=== PATIENT | female | born 1955 | race Caucasian/White ===

== ENCOUNTER 2018-03-08 14:43 | Inpatient (IN) ==
--- NOTE | 2018-03-08 14:54 | DR.SOBA ---
HPI Time Seen Time Seen by Provider: 03/08/18 14:50 Primary Care Physician Primary Care Physician: NASREEN DICKERSON HPI Comment HPI Comment: GETTING WORSE. HERE VIA EMS. HISTORY COPD. HOMES DID NOT HELP. Complaints Chief Complaint Doctors Comments: INCREASING SOB TIMES SEVERAL HOURS. Chief Complaint:: PT. C/O EXACERABATION OF COPD AND SHORTNESS OF BREATH. SYMPTOMS WORSENED THIS MORNING. DENIES FEVER OR COUGH. Reviewed Nurses Notes Reviewed: Yes Source History Provided: Patient and EMS Mode of Arrival Mode of Arrival: EMS Timing Onset of Chief Complaint: 03/08/18 Duration Duration: Hours Context Onset:: At Rest PE Risk Factors:: None History of:: COPD Currently on:: Inhaled Bronchodilators Prehospital Care:: O2 and Inhaled B2 Modifying Factors Worsens:: Lying Flat Improves:: Sitting Up Associated Signs and Symptoms Associated Signs and Symptoms: Wheeze If Chest Pain Quality: Pleuritic (TIGHTNESS) If Cough Cough: None PMH PMH Past Medical History: Yes Past Medical History: COPD, Coronary Artery Disease, CVA and Hypertension Past Surgical History: Yes Surgical History: Ectopic Family History History of Family Medical Conditions: Yes Family Medical History: [place], Coronary Artery Disease and Hypertension Social History Does patient currently use any type of tobacco product: Yes Have you used tobacco products in the last 12 months: Yes Type of Tobacco Use: Cigarettes Does any household member use tobacco: Yes Alcohol Use: None Do you use any recreational Drugs:: No Lives With: Significant Other Lives Where: Home infectious screening In the last 2 months have you had wt loss of >10#?: NO Have you had fever, night sweats or hemotysis?: No Have you traveled outside the country in the last 6 months?: No Isolation: Standard ROS Review of Systems Constitutional: Weakness and Fatigue Eyes: No Symptoms Reported ENTM: No Symptoms Reported Respiratoy: Short of Breath and Wheezing Cardiovascular: Chest Pain Gastrointestinal/Abdominal: No Symptoms Reported Genitourinary: No Symptoms Reported Neurological: Weakness Musculoskeletal: No Symptoms Reported Integumentary: No Symptoms Reported Hematologic/Lymphatic: No Symptoms Reported Endocrine: No Symptoms Reported Psychiatric: No Symptoms Reported All Other Systems: Reviewed and Negative PE Vital Signs Vitals: Temperature 97.8 F Pulse Rate [Left Brachial] 108 Pulse Rate 111 Respiratory Rate 22 Blood Pressure [Left Arm] 106/65 Blood Pressure 141/85 O2 Sat by Pulse Oximetry 97 General Limitations: No Limitations General Appearance: Alert and In Distress Eyes Eye exam: Normal Appearance, PERRL and EOMI; negative Scleral Icterus and Conjunctival Injection ENT ENT Exam: Normal Exam, Normal Oropharynx, Normal External Ear Exam, Mucous Membranes Moist and TM's Normal Bilaterally Neck Neck Exam: Trachea Midline Chest Chest Inspection: Symmetric Chest Wall Rise Respiratory Respiratory Exam: Accessory Muscle Use and Respiratory Distress Respiratory Exam: Bilateral: Wheezing and Bilateral: Rhonchi, Upper: Wheezing and Lower: Wheezing and Lower: Rhonchi Cardiovascular Cardiovascular Exam: Regular Rate and Normal Rhythm Abdominal Exam Abdominal Exam: Normal Inspection, Normal Bowel Sounds and Soft; negative Tenderness Extremities Extremities Exam: Normal Inspection Back Back Exam: Normal Inspection Neurologic Neurological Exam: Alert Psychiatric Psychiatric Exam: Normal Affect and Normal Mood Skin Skin Exam: Intact MDM Differential Diagnosis Differential Diagnosis: Bronchitis, COPD, Respiratory Failure, Respiratory Insufficiency and URI COURSE Treatment Treatment: SEE ORDERS. Consultation Consultation Comments: PATIENT ADMITTED EO CORRINE CONNOLLY. Education/Counseling Education/Counseling: Patient Educated On: Diagnosis and Needs for Follow Up ROR Labs Reviewed Laboratory Results Reviewed?: Yes Result Diagrams: 03/11/18 04:09 03/11/18 04:09 Laboratory: 03/08/18 22:53 Urine,Catheterized Urine Culture - Final WBC 6.8 X10^3/uL (3.6-10.0) 03/11/18 04:09 RBC 4.22 X10^6/uL (3.5-5.4) 03/11/18 04:09 Hgb 10.4 g/dL (12.0-16.0) L 03/11/18 04:09 Hct 33.9 % (36.0-47.0) L 03/11/18 04:09 MCV 80.2 fL (80.0-100.0) 03/11/18 04:09 MCH 24.7 pg (27.0-34.0) L 03/11/18 04:09 MCHC 30.8 g/dL (33.0-35.0) L 03/11/18 04:09 RDW 16.8 % (11.6-16.5) H 03/11/18 04:09 Plt Count 315 X10^3/uL (150.0-450.0) 03/11/18 04:09 Plt Count Comment Adequate (ADEQUATE) 03/11/18 04:09 MPV 8.8 fL (7.4-11.0) 03/11/18 04:09 Neut % (Auto) 71.4 % (42.0-75.0) 03/11/18 04:09 Lymph % (Auto) 18.6 % (21.0-51.0) L 03/11/18 04:09 [place] % (Auto) 9.2 % (0.0-13.0) 03/11/18 04:09 Eos % (Auto) 0.1 % (0.9-2.9) L 03/11/18 04:09 Baso % (Auto) 0.7 % (0.2-1.0) 03/11/18 04:09 Neut # (Auto) 4.2 x10^3/uL (2.2-4.8) 03/11/18 04:09 Lymph # (Auto) 1.1 X10^3/uL (1.3-2.9) L 03/11/18 04:09 [place] # (Auto) 0.5 x10^3/uL (0.3-0.8) 03/11/18 04:09 Eos # (Auto) 0.0 x10^3/uL (0.0-0.2) 03/11/18 04:09 Baso # (Auto) 0.0 X10^3/uL (0.0-0.1) 03/11/18 04:09 Absolute Nucleated RBC 0.1 /100WBC 03/11/18 04:09 Total Counted 100 03/11/18 04:09 Neutrophils % (Manual) 72 % (39-76) 03/11/18 04:09 Band Neutrophils % 2 % (0-10) 03/10/18 04:07 Lymphocytes % (Manual) 21 % (13-43) 03/11/18 04:09 Monocytes % (Manual) 7 % (4-9) 03/11/18 04:09 Plt Morphology Comment Normal (NORMAL) 03/11/18 04:09 RBC Morphology Abnormal (NORMAL) A 03/11/18 04:09 Hypochromasia Slight A 03/11/18 04:09 Poikilocytosis Slight A 03/11/18 04:09 Anisocytosis Slight A 03/11/18 04:09 Target Cells Present 03/11/18 04:09 Stomatocytes Present 03/11/18 04:09 Sample Site Rbr 03/11/18 14:29 ABG pH 7.310 (7.35-7.45) L 03/11/18 14:29 ABG pCO2 89.0 mmHg (35.0-45.0) H* 03/11/18 14:29 ABG pO2 68.0 mmHg (80.0-100.0) L 03/11/18 14:29 ABG HCO3 44.8 mmol/L (22-26) H* 03/11/18 14:29 ABG O2 Saturation 91.0 % (90-100) 03/11/18 14:29 ABG Base Excess 14.6 mmol/L (-2.0-2.0) H 03/11/18 14:29 Seun Test N/a 03/11/18 14:29 A-a Gradient 49.0 mmHg 03/11/18 14:29 FiO2 32 03/11/18 14:29 Blood Gas Comments Pt irish well elj 03/11/18 14:29 Sodium 137 mmol/L (136-145) 03/11/18 04:09 Corrected Sodium 138 mmol/L (136-145) 03/11/18 04:09 Potassium 4.2 mmol/L (3.5-5.1) 03/11/18 04:09 Chloride 96 mmol/L (98-107) L 03/11/18 04:09 Carbon Dioxide 42.6 mmol/L (21-32) H* 03/11/18 04:09 BUN 15 mg/dL (7-18) 03/11/18 04:09 Creatinine 0.48 mg/dL (0.55-1.02) L 03/11/18 04:09 Est GFR (MDRD) Af Amer > 60 (>60) 03/11/18 04:09 Est GFR (MDRD) Non-Af > 60 (>60) 03/11/18 04:09 Glucose 124 mg/dL (65-99) H 03/11/18 04:09 Calcium 7.9 mg/dL (8.5-10.1) L 03/11/18 04:09 Corrected Calcium 8.7 mg/dL (8.5-10.1) 03/11/18 04:09 Magnesium 2.0 mg/dL (1.7-2.9) 03/09/18 04:00 Total Bilirubin 0.10 mg/dL (0.2-1.0) L 03/11/18 04:09 AST 14 Units/L (15-37) L 03/11/18 04:09 ALT 20 Units/L (12-78) 03/11/18 04:09 Alkaline Phosphatase 109 Units/L (46-116) 03/11/18 04:09 Creatine Kinase 59 Units/L (26-192) 03/09/18 04:00 CK-MB (CK-2) 2.6 ng/mL (0-4.0) 03/09/18 04:00 CK/CKMB % Calc 4.4 % (<4) 03/09/18 04:00 Troponin I < 0.02 ng/mL (0-1.5) 03/09/18 04:00 Total Protein 6.2 g/dL (6.4-8.2) L 03/11/18 04:09 Albumin 3.0 g/dL (3.4-5.0) L 03/11/18 04:09 Globulin 3.2 g/dL (2.5-4.5) 03/11/18 04:09 Albumin/Globulin Ratio 0.9 Ratio (1.1-2.1) L 03/11/18 04:09 Triglycerides 32 mg/dL (0-150) 03/09/18 04:00 Cholesterol 161 mg/dL (0-200) 03/09/18 04:00 LDL Cholesterol, Calc 84 mg/dL (0-100) 03/09/18 04:00 HDL Cholesterol 71 mg/dL (40-60) H 03/09/18 04:00 Cholesterol/HDL Ratio 2.3 (0.0-5.0) 03/09/18 04:00 Specimen Type Catherized urine 03/08/18 22:53 Urine Color Dark yellow (YELLOW) 03/08/18 22:53 Urine Appearance Hazy (CLEAR) 03/08/18 22:53 Urine pH 6.5 (5.0 - 8.0) 03/08/18 22:53 Ur Specific [place] 1.015 (1.000-1.030) 03/08/18 22:53 Urine Protein 2+ (NEGATIVE) 03/08/18 22:53 Urine Glucose (UA) Negative (NEGATIVE) 03/08/18 22:53 Urine Ketones Negative (NEGATIVE) 03/08/18 22:53 Urine Occult Blood 2+ (NEGATIVE) 03/08/18 22:53 Urine Nitrite Positive (NEGATIVE) 03/08/18 22:53 Urine Bilirubin Negative (NEGATIVE) 03/08/18 22:53 Urine Urobilinogen Normal (NORMAL) 03/08/18 22:53 Ur Leukocyte Esterase 3+ (NEGATIVE) 03/08/18 22:53 Urine RBC 5-10 /HPF (NONE SEEN) 03/08/18 22:53 Urine WBC 30-50 /HPF (NONE SEEN) 03/08/18 22:53 Ur Squamous Epith Cells Few /HPF (NEGATIVE) 03/08/18 22:53 Ur Renal Epithelial Cell Few /HPF (NEGATIVE) 03/08/18 22:53 Urine Bacteria 1+ /HPF (NEGATIVE) 03/08/18 22:53 Urine Mucus Few /HPF (NEGATIVE) 03/08/18 16:18 Ur Culture Indicated? Yes/culture set up 03/08/18 22:53 XRAY XRAY Interpreted by: Radiologist XRAY Findings: REPORT DISCUSS WITH PATIENT. Diagnosis Discharge Problem: COPD exacerbation Instructions Instructions: Chronic Obstructive Pulmonary Disease Exacerbation, [id number] Steps to Quit Smoking, [id number] Shortness of Breath, Adult, [id number] Chronic Obstructive Pulmonary Disease, [id number] Hypertension, [id number]
[2018-03-08] MEDS ORDERED: DUONEB 0.5 MG/3 MG NEB ONE (15:12)
[2018-03-08] MEDS ORDERED: SOLU-Medrol 125 MG VIAL IVP ONE (15:12)
[2018-03-08] MEDS ORDERED: DUONEB 0.5 MG/3 MG ONE (15:18)
[2018-03-08] MEDS ORDERED: SOLU-Medrol 125 MG VIAL ONE (15:25)
[2018-03-08 15:36] LABS: ABG BASE EXCESS 19.9 mmol/L (-2.0-2.0); ABG HCO3 49.7 mmol/L (22-26)
[2018-03-08 15:37] LABS: ABG ALLEN TEST POS; FRACTIONATED INSPIRED OXYGEN 32
[2018-03-08 15:42] LABS: BASOPHILS # (AUTO) 0.1 X10^3/uL (0.0-0.1); EOSINOPHILS # (AUTO) 0.1 x10^3/uL (0.0-0.2); EOSINOPHILS % (AUTO) 1.5 % (0.9-2.9); HEMATOCRIT 36.1 % (36.0-47.0); HEMOGLOBIN 11.2 g/dL (12.0-16.0); LYMPHOCYTES # (AUTO) 1.2 X10^3/uL (1.3-2.9); LYMPHOCYTES % (AUTO) 21.9 % (21.0-51.0); MEAN CORPUSCULAR HEMOGLOBIN 24.6 pg (27.0-34.0); MEAN CORPUSCULAR VOLUME 79.6 fL (80.0-100.0); MEAN PLATELET VOLUME 7.3 fL (7.4-11.0); MONOCYTES # (AUTO) 0.4 x10^3/uL (0.3-0.8); MONOCYTES % (AUTO) 8.2 % (0.0-13.0); NEUTROPHILS # (AUTO) 3.6 x10^3/uL (2.2-4.8); NEUTROPHILS % (AUTO) 67.4 % (42.0-75.0); PLATELET COUNT 311 X10^3/uL (150.0-450.0); RED BLOOD COUNT 4.54 X10^6/uL (3.5-5.4); RED CELL DISTRIBUTION WIDTH 16.7 % (11.6-16.5); WHITE BLOOD COUNT 5.3 X10^3/uL (3.6-10.0)
[2018-03-08 15:54] LABS: PLATELET MORPHOLOGY COMMENT NORMAL (NORMAL)
[2018-03-08 16:05] LABS: ALANINE AMINOTRANSFERASE 18 Units/L (12-78); ALBUMIN 3.7 g/dL (3.4-5.0); ALKALINE PHOSPHATASE 102 Units/L (46-116); ASPARTATE AMINO TRANSFERASE 15 Units/L (15-37); BLOOD UREA NITROGEN 12 mg/dL (7-18); CALCIUM 8.6 mg/dL (8.5-10.1); CHLORIDE 94 mmol/L (98-107); CKMB % 4.9 % (<4); CREATINE KINASE 66 Units/L (26-192); CREATINE KINASE MB 3.2 ng/mL (0-4.0); SODIUM 136 mmol/L (136-145); TOTAL PROTEIN 7.2 g/dL (6.4-8.2); TROPONIN I < 0.02 ng/mL (0-1.5); eGFR NON BLACK RACES > 60 (>60)
[2018-03-08 16:08] LABS: CARBON DIOXIDE 42.6 mmol/L (21-32)
[2018-03-08 16:33] LABS: BILIRUBIN,URINE NEGATIVE (NEGATIVE); BLOOD/HEMOGLOBIN,URINE 3+ (NEGATIVE); GLUCOSE, URINE NEGATIVE (NEGATIVE); KETONES,URINE NEGATIVE (NEGATIVE); LEUKOCYTE ESTERASE ,URINE 2+ (NEGATIVE); NITRITES,URINE NEGATIVE (NEGATIVE); PROTEIN,URINE 2+ (NEGATIVE); UROBILINOGEN,URINE NORMAL (NORMAL)
[2018-03-08 16:36] LABS: APPEARANCE,URINE CLOUDY (CLEAR); COLOR,URINE YELLOW (YELLOW)
[2018-03-08 16:41] LABS: BACTERIA,URINE 2+ /HPF (NEGATIVE); MUCUS,URINE FEW /HPF (NEGATIVE); SQUAMOUS EPITHELIAL CELL,UR FEW /HPF (NEGATIVE)
[2018-03-08] MEDS ORDERED: TORADOL 30 MG VIAL IVP ONE (16:58)
[2018-03-08] MEDS ORDERED: ROCEPHIN VIAL 1 GRAM IVP ONE (16:59)
[2018-03-08] MEDS ORDERED: TORADOL 30 MG VIAL ONE (17:00)
[2018-03-08] MEDS ORDERED: ROCEPHIN VIAL 1 GRAM ONE (17:00)
[2018-03-08] MEDS ORDERED: BENADRYL INJ 50 MG VIAL IVP ONE (17:05)
[2018-03-08] MEDS ORDERED: BENADRYL INJ 50 MG VIAL ONE (17:07)
[2018-03-08] MEDS ORDERED: NORCO 10/325 TAB PO ONE (18:54)
[2018-03-08] MEDS ORDERED: NORCO 10/325 TAB ONE (18:55)
[2018-03-08] MEDS: LEVAQUIN PREMIX IV 500 MG 500 MG/100 ML BAG IV SCH (20:11)
[2018-03-08] MEDS: NS 1000 ML 1,000 ML IV SCH (20:12)
[2018-03-08] MEDS: DUONEB 0.5 MG/3 MG NEB SCH (21:36)
[2018-03-08 23:06] LABS: BILIRUBIN,URINE NEGATIVE (NEGATIVE); BLOOD/HEMOGLOBIN,URINE 2+ (NEGATIVE); GLUCOSE, URINE NEGATIVE (NEGATIVE); KETONES,URINE NEGATIVE (NEGATIVE); LEUKOCYTE ESTERASE ,URINE 3+ (NEGATIVE); NITRITES,URINE POSITIVE (NEGATIVE); PH,URINE 6.5 (5.0 - 8.0); PROTEIN,URINE 2+ (NEGATIVE); UROBILINOGEN,URINE NORMAL (NORMAL)
[2018-03-08 23:14] LABS: APPEARANCE,URINE HAZY (CLEAR); BACTERIA,URINE 1+ /HPF (NEGATIVE); COLOR,URINE DARK YELLOW (YELLOW); RENAL EPITHELIAL CELLS,URINE FEW /HPF (NEGATIVE); SQUAMOUS EPITHELIAL CELL,UR FEW /HPF (NEGATIVE)
[2018-03-08 23:27] LABS: CKMB % 4.2 % (<4); CREATINE KINASE 78 Units/L (26-192); CREATINE KINASE MB 3.3 ng/mL (0-4.0); TROPONIN I < 0.02 ng/mL (0-1.5)
[2018-03-09] MEDS: DUONEB 0.5 MG/3 MG NEB SCH ×7 (01:37→20:15)
[2018-03-09 01:49] VITALS: BMI 18.3
[2018-03-09 05:27] LABS: HEMATOCRIT 32.4 % (36.0-47.0); LYMPHOCYTES # (AUTO) 0.6 X10^3/uL (1.3-2.9); LYMPHOCYTES % (AUTO) 18.5 % (21.0-51.0); MEAN CORPUSCULAR HEMOGLOBIN 24.7 pg (27.0-34.0); MEAN CORPUSCULAR HGB CONC 30.9 g/dL (33.0-35.0); MEAN CORPUSCULAR VOLUME 79.8 fL (80.0-100.0); MONOCYTES # (AUTO) 0.1 x10^3/uL (0.3-0.8); MONOCYTES % (AUTO) 3.8 % (0.0-13.0); NEUTROPHILS # (AUTO) 2.5 x10^3/uL (2.2-4.8); NEUTROPHILS % (AUTO) 76.7 % (42.0-75.0); PLATELET COUNT 305 X10^3/uL (150.0-450.0); RED BLOOD COUNT 4.07 X10^6/uL (3.5-5.4); RED CELL DISTRIBUTION WIDTH 16.4 % (11.6-16.5); WHITE BLOOD COUNT 3.2 X10^3/uL (3.6-10.0)
[2018-03-09 05:42] LABS: ALANINE AMINOTRANSFERASE 14 Units/L (12-78); ALBUMIN 3.1 g/dL (3.4-5.0); ALKALINE PHOSPHATASE 86 Units/L (46-116); ASPARTATE AMINO TRANSFERASE 12 Units/L (15-37); BLOOD UREA NITROGEN 16 mg/dL (7-18); CHLORIDE 97 mmol/L (98-107); CHOL/HDL RATIO 2.3 (0.0-5.0); CHOLESTEROL 161 mg/dL (0-200); COR CA(FOR HYPOALB) 8.7 mg/dL (8.5-10.1); COR NA(FOR HYPERGLY) 137 mmol/L (136-145); CREATININE 0.46 mg/dL (0.55-1.02); HDL CHOLESTEROL 71 mg/dL (40-60); SODIUM 136 mmol/L (136-145); TOTAL PROTEIN 6.5 g/dL (6.4-8.2); TRIGLYCERIDES 32 mg/dL (0-150); eGFR NON BLACK RACES > 60 (>60)
[2018-03-09 05:47] LABS: CARBON DIOXIDE 40.2 mmol/L (21-32)
[2018-03-09 05:56] LABS: PLATELET MORPHOLOGY COMMENT NORMAL (NORMAL)
[2018-03-09 06:00] LABS: CKMB % 4.4 % (<4); CREATINE KINASE 59 Units/L (26-192); CREATINE KINASE MB 2.6 ng/mL (0-4.0); TROPONIN I < 0.02 ng/mL (0-1.5)
[2018-03-09] MEDS: NORCO 5/325 MG TAB PO PRN ×3 (08:08→22:16)
[2018-03-09] MEDS: SOLU-Medrol 40 MG VIAL IVP SCH ×2 (08:08→17:45)
[2018-03-09] MEDS: LEVAQUIN PREMIX IV 500 MG 500 MG/100 ML BAG IV SCH (08:08)
[2018-03-09] MEDS: NS 1000 ML 1,000 ML IV SCH ×2 (10:42→22:31)
--- NOTE | 2018-03-09 11:27 | DR.H&P ---
H&P - History & Physical for Day of: H&P Date: 03/08/18 - Chief Complaint Chief Complaint: SOB - History of Present Illness History of Present Illness: 62 WF ER ADMISSION AFTER PRESENTING WITH CO SOB. PT HAS PMH OF COPD, HTN, OA AND CVD. PT STATES SHE HAS O2, NEBULIZER AT HOME WITH NO IMPROVEMENT IN SOB. PT CO INCREASED SPUTUM PRODUCTION. PT HAD SERIAL CE IN ER AND EKG. PT ADMITTED FOR TREATMENT OF ACUTE COPD EXACERBATION. - Past Medical History Past Medical History: Coronary Artery Disease, Hypertension, CVA, COPD - Past Surgical History Surgical History: Other - Family History Family Medical History: [place], Coronary Artery Disease, Hypertension - Social History Does patient currently use any type of tobacco product: Yes Have you used tobacco products in the last 12 months: Yes Type of Tobacco Use: Cigarettes How many years tobacco product used: 47 Does any household member use tobacco: Yes Alcohol Use: None Drug Use: None - Medications Home Medications: ceftriaxone [From Rocephin] Allergy (Verified 03/08/18 17:24) ketorolac [From Toradol] Allergy (Verified 03/08/18 17:24) CONTINUE taking the following medications albuterol sulfate [Proventil HFA] 2 puff INHALATION Q4H PRN 03/09/18 [History] alprazolam [Xanax] 1 mg PO BID PRN 03/09/18 [History] budesonide-formoterol [Symbicort] 2 puff INHALATION BID 03/09/18 [History] oxycodone [Roxicodone] 5 mg PO Q6H PRN 03/09/18 [History] rotigotine [Neupro] 1 patch TOPICAL DAILY 03/09/18 [History] - Review of Systems Constitutional: Weakness Eyes: No Symptoms Reported Respiratory: Cough, Shortness of Breath, SOB with Excertion, Wheezing Cardiovascular: No Symptoms Reported Gastrointestinal: No Symptoms Reported Genitourinary: No Symptoms Reported Musculoskeletal: Back Pain Skin: No Symptoms Reported Neurological: No Symptoms Reported - Physical Exam Vital Signs: Temperature 98.6 F Pulse Rate [Left Brachial] 97 Pulse Rate 112 Respiratory Rate 20 Blood Pressure [Left Arm] 121/72 Blood Pressure 141/85 O2 Sat by Pulse Oximetry 96 Oriented: Normal Eyes: Normal Ear: Normal Nose: Normal Throat: Normal Respiratory: Diminished Throughout, Wheezes Throughout Cardiovascular: Normal. negative: Edema : Normal Auscultation: Bowel Sounds: Normal Palpation: Normal Tenderness: Normal Skin: Decreased Turgur Musculoskeletal: Back:Thoracic, Back:Lumbar Psychiatric: Anxiety Affect: Anxious Speech Pattern: Clear, Appropriate - Assessment/Plan (1) SOB (shortness of breath) Status: Acute Plan: ADMIT, RESP CONSULT, SUPPLEMENTAL O2. IV ATBX, ABG. BP MONITORING, SERIAL CE AND EKG. CXR ON ADMISSION. VERIFY HOME MEDS, CARDIAC MONITORING (2) COPD exacerbation Status: Acute (3) Hypertension Status: Acute (4) Anxiety Status: Acute - Allergies Allergies/Adverse Reactions: Allergies Allergy/AdvReac Type Severity Reaction Status Date / Time ceftriaxone [From Rocephin] Allergy Verified 03/08/18 17:24 ketorolac [From Toradol] Allergy Verified 03/08/18 17:24
--- NOTE | 2018-03-09 11:35 | PCM.PROG ---
Progress Note - Progress Note for Day of Date of Exam: 03/09/18 - Subjective Subjective: 62 WF ER ADMISSION WITH COPD EXACERBATION, CO SOB. PT CURRENTLY ON IV ATBX, SOLU MEDROL, SUPPLEMENTAL O2 AND RESP THERAPY. CULTURES COLLECTED ON ADMISSION, PENDING. PT CONTINUES TO CO COUGH AND WHEEZING, NON PRODUCTIVE THIS AM. PT CO JOINT PAIN AND ANXIETY. - Past Medical Family Social History Past Med/Fam/Surg Hx: No changes since H&P Allergies: Allergies ceftriaxone [From Rocephin] Allergy (Verified 03/08/18 17:24) ketorolac [From Toradol] Allergy (Verified 03/08/18 17:24) - Review of Systems ROS: No change since H&P - Vital Signs and I&O's Vital Signs: Temperature 98.6 F Pulse Rate [Left Brachial] 97 Pulse Rate 112 Respiratory Rate 20 Blood Pressure [Left Arm] 121/72 Blood Pressure 141/85 O2 Sat by Pulse Oximetry 96 Intake and Output: Intake & Output 03/06/18 03/07/18 03/08/18 03/09/18 11:59 11:59 11:59 11:59 Intake Total 1177 / 1177 Output Total 300 / 300 Balance 877 / 877 - Physical Exam Oriented: Normal Eyes: Normal Ear: Normal Nose: Normal Throat: Normal Respiratory: Diminished, Wheezes, Rhonchi Cardiovascular: Normal. negative: Edema : Normal Auscultation: Bowel Sounds: Normal Tenderness: Normal Skin: Decreased Turgur Musculoskeletal: Back:Thoracic, Back:Lumbar Psychiatric: Anxiety Affect: Anxious Speech Pattern: Clear, Appropriate - Laboratory and Diagnostics Result Diagrams: 03/09/18 04:00 03/09/18 04:00 Labs: Laboratory WBC 3.2 X10^3/uL (3.6-10.0) L 03/09/18 04:00 RBC 4.07 X10^6/uL (3.5-5.4) 03/09/18 04:00 Hgb 10.0 g/dL (12.0-16.0) L 03/09/18 04:00 Hct 32.4 % (36.0-47.0) L 03/09/18 04:00 MCV 79.8 fL (80.0-100.0) L 03/09/18 04:00 MCH 24.7 pg (27.0-34.0) L 03/09/18 04:00 MCHC 30.9 g/dL (33.0-35.0) L 03/09/18 04:00 RDW 16.4 % (11.6-16.5) 03/09/18 04:00 Plt Count 305 X10^3/uL (150.0-450.0) 03/09/18 04:00 Plt Count Comment Adequate (ADEQUATE) 03/09/18 04:00 MPV 8.0 fL (7.4-11.0) 03/09/18 04:00 Neut % (Auto) 76.7 % (42.0-75.0) H 03/09/18 04:00 Lymph % (Auto) 18.5 % (21.0-51.0) L 03/09/18 04:00 [place] % (Auto) 3.8 % (0.0-13.0) 03/09/18 04:00 Eos % (Auto) 0.0 % (0.9-2.9) L 03/09/18 04:00 Baso % (Auto) 1.0 % (0.2-1.0) 03/09/18 04:00 Neut # (Auto) 2.5 x10^3/uL (2.2-4.8) 03/09/18 04:00 Lymph # (Auto) 0.6 X10^3/uL (1.3-2.9) L 03/09/18 04:00 [place] # (Auto) 0.1 x10^3/uL (0.3-0.8) L 03/09/18 04:00 Eos # (Auto) 0.0 x10^3/uL (0.0-0.2) 03/09/18 04:00 Baso # (Auto) 0.0 X10^3/uL (0.0-0.1) 03/09/18 04:00 Absolute Nucleated RBC 0.2 /100WBC 03/09/18 04:00 Plt Morphology Comment Normal (NORMAL) 03/09/18 04:00 RBC Morphology Normal (NORMAL) 03/09/18 04:00 Sample Site Lr 03/08/18 15:30 ABG pH 7.370 (7.35-7.45) 03/08/18 15:30 ABG pCO2 86.0 mmHg (35.0-45.0) H* 03/08/18 15:30 ABG pO2 62.0 mmHg (80.0-100.0) L 03/08/18 15:30 ABG HCO3 49.7 mmol/L (22-26) H* 03/08/18 15:30 ABG O2 Saturation 91.0 % (90-100) 03/08/18 15:30 ABG Base Excess 19.9 mmol/L (-2.0-2.0) H 03/08/18 15:30 Seun Test Pos 03/08/18 15:30 A-a Gradient 59.0 mmHg 03/08/18 15:30 FiO2 32 03/08/18 15:30 Blood Gas Comments Pt irish well. cdn 03/08/18 15:30 Sodium 136 mmol/L (136-145) 03/09/18 04:00 Corrected Sodium 137 mmol/L (136-145) 03/09/18 04:00 Potassium 5.1 mmol/L (3.5-5.1) 03/09/18 04:00 Chloride 97 mmol/L (98-107) L 03/09/18 04:00 Carbon Dioxide 40.2 mmol/L (21-32) H* 03/09/18 04:00 BUN 16 mg/dL (7-18) 03/09/18 04:00 Creatinine 0.46 mg/dL (0.55-1.02) L 03/09/18 04:00 Est GFR (MDRD) Af Amer > 60 (>60) 03/09/18 04:00 Est GFR (MDRD) Non-Af > 60 (>60) 03/09/18 04:00 Glucose 131 mg/dL (65-99) H 03/09/18 04:00 Calcium 8.0 mg/dL (8.5-10.1) L 03/09/18 04:00 Corrected Calcium 8.7 mg/dL (8.5-10.1) 03/09/18 04:00 Magnesium 2.0 mg/dL (1.7-2.9) 03/09/18 04:00 Total Bilirubin 0.10 mg/dL (0.2-1.0) L 03/09/18 04:00 AST 12 Units/L (15-37) L 03/09/18 04:00 ALT 14 Units/L (12-78) 03/09/18 04:00 Alkaline Phosphatase 86 Units/L (46-116) 03/09/18 04:00 Creatine Kinase 59 Units/L (26-192) 03/09/18 04:00 CK-MB (CK-2) 2.6 ng/mL (0-4.0) 03/09/18 04:00 CK/CKMB % Calc 4.4 % (<4) 03/09/18 04:00 Troponin I < 0.02 ng/mL (0-1.5) 03/09/18 04:00 Total Protein 6.5 g/dL (6.4-8.2) 03/09/18 04:00 Albumin 3.1 g/dL (3.4-5.0) L 03/09/18 04:00 Globulin 3.4 g/dL (2.5-4.5) 03/09/18 04:00 Albumin/Globulin Ratio 0.9 Ratio (1.1-2.1) L 03/09/18 04:00 Triglycerides 32 mg/dL (0-150) 03/09/18 04:00 Cholesterol 161 mg/dL (0-200) 03/09/18 04:00 LDL Cholesterol, Calc 84 mg/dL (0-100) 03/09/18 04:00 HDL Cholesterol 71 mg/dL (40-60) H 03/09/18 04:00 Cholesterol/HDL Ratio 2.3 (0.0-5.0) 03/09/18 04:00 Specimen Type Catherized urine 03/08/18 22:53 Urine Color Dark yellow (YELLOW) 03/08/18 22:53 Urine Appearance Hazy (CLEAR) 03/08/18 22:53 Urine pH 6.5 (5.0 - 8.0) 03/08/18 22:53 Ur Specific [place] 1.015 (1.000-1.030) 03/08/18 22:53 Urine Protein 2+ (NEGATIVE) 03/08/18 22:53 Urine Glucose (UA) Negative (NEGATIVE) 03/08/18 22:53 Urine Ketones Negative (NEGATIVE) 03/08/18 22:53 Urine Occult Blood 2+ (NEGATIVE) 03/08/18 22:53 Urine Nitrite Positive (NEGATIVE) 03/08/18 22:53 Urine Bilirubin Negative (NEGATIVE) 03/08/18 22:53 Urine Urobilinogen Normal (NORMAL) 03/08/18 22:53 Ur Leukocyte Esterase 3+ (NEGATIVE) 03/08/18 22:53 Urine RBC 5-10 /HPF (NONE SEEN) 03/08/18 22:53 Urine WBC 30-50 /HPF (NONE SEEN) 03/08/18 22:53 Ur Squamous Epith Cells Few /HPF (NEGATIVE) 03/08/18 22:53 Ur Renal Epithelial Cell Few /HPF (NEGATIVE) 03/08/18 22:53 Urine Bacteria 1+ /HPF (NEGATIVE) 03/08/18 22:53 Urine Mucus Few /HPF (NEGATIVE) 03/08/18 16:18 Ur Culture Indicated? Yes/culture set up 03/08/18 22:53 - Plan (1) SOB (shortness of breath) Status: Acute Plan: RESP CONSULT, SUPPLEMENTAL O2. IV ATBX, ABG ON ADMISSION. BP MONITORING, SERIAL CE AND EKG. CXR ON ADMISSION. VERIFY HOME MEDS, CARDIAC MONITORING (2) COPD exacerbation Status: Acute (3) Hypertension Status: Acute (4) Anxiety Status: Acute Plan: RESUME HOME MEDS
[2018-03-09] MEDS: XANAX PO PRN ×2 (15:16→23:55)
[2018-03-09] MEDS: PULMICORT NEB TX 0.5 MG NEB SCH (20:15)
[2018-03-09] MEDS ORDERED: PATIENT'S HOME MEDICATION (Budesonide-Formoterol 2 PUFF) IN SCH (21:00)
[2018-03-10] MEDS: DUONEB 0.5 MG/3 MG NEB SCH ×6 (00:27→20:07)
[2018-03-10] MEDS: SOLU-Medrol 40 MG VIAL IVP SCH ×3 (00:40→16:27)
[2018-03-10 05:24] LABS: BASOPHILS % (AUTO) 0.1 % (0.2-1.0); HEMATOCRIT 29.9 % (36.0-47.0); HEMOGLOBIN 9.2 g/dL (12.0-16.0); LYMPHOCYTES # (AUTO) 0.2 X10^3/uL (1.3-2.9); LYMPHOCYTES % (AUTO) 7.8 % (21.0-51.0); MEAN CORPUSCULAR HEMOGLOBIN 24.4 pg (27.0-34.0); MEAN CORPUSCULAR HGB CONC 30.9 g/dL (33.0-35.0); MONOCYTES # (AUTO) 0.2 x10^3/uL (0.3-0.8); MONOCYTES % (AUTO) 5.8 % (0.0-13.0); NEUTROPHILS # (AUTO) 2.6 x10^3/uL (2.2-4.8); NEUTROPHILS % (AUTO) 86.3 % (42.0-75.0); PLATELET COUNT 302 X10^3/uL (150.0-450.0); RED BLOOD COUNT 3.78 X10^6/uL (3.5-5.4); RED CELL DISTRIBUTION WIDTH 17.1 % (11.6-16.5)
[2018-03-10 05:38] LABS: ALANINE AMINOTRANSFERASE 16 Units/L (12-78); ALKALINE PHOSPHATASE 86 Units/L (46-116); ASPARTATE AMINO TRANSFERASE 12 Units/L (15-37); BLOOD UREA NITROGEN 9 mg/dL (7-18); CALCIUM 7.9 mg/dL (8.5-10.1); CHLORIDE 98 mmol/L (98-107); COR CA(FOR HYPOALB) 8.7 mg/dL (8.5-10.1); COR NA(FOR HYPERGLY) 138 mmol/L (136-145); CREATININE 0.39 mg/dL (0.55-1.02); SODIUM 137 mmol/L (136-145); eGFR NON BLACK RACES > 60 (>60)
[2018-03-10 06:00] LABS: BAND NEUTROPHILS % 2 % (0-10); PLATELET MORPHOLOGY COMMENT NORMAL (NORMAL)
[2018-03-10 06:01] LABS: HYPOCHROMASIA SLIGHT
[2018-03-10 06:04] LABS: CARBON DIOXIDE 41.2 mmol/L (21-32)
[2018-03-10] MEDS: PULMICORT NEB TX 0.5 MG NEB SCH ×2 (08:53→20:07)
[2018-03-10] MEDS: ROTIGOTINE TP SCH (09:00)
[2018-03-10] MEDS ORDERED: NS 100 ML IV 100 ML IV ONE (10:57)
[2018-03-10] MEDS: NS 1000 ML 1,000 ML IV SCH ×2 (11:27→13:47)
[2018-03-10] MEDS: LEVAQUIN PREMIX IV 500 MG 500 MG/100 ML BAG IV SCH (11:27)
[2018-03-10] MEDS: NORCO 5/325 MG TAB PO PRN (13:48)
[2018-03-11] MEDS: DUONEB 0.5 MG/3 MG NEB SCH ×5 (01:35→16:54)
[2018-03-11] MEDS: NORCO 5/325 MG TAB PO PRN ×2 (01:48→08:58)
[2018-03-11] MEDS: XANAX PO PRN ×2 (01:48→08:58)
[2018-03-11] MEDS: SOLU-Medrol 40 MG VIAL IVP SCH ×3 (01:48→17:02)
[2018-03-11 05:11] LABS: BASOPHILS % (AUTO) 0.7 % (0.2-1.0); EOSINOPHILS % (AUTO) 0.1 % (0.9-2.9); HEMATOCRIT 33.9 % (36.0-47.0); HEMOGLOBIN 10.4 g/dL (12.0-16.0); LYMPHOCYTES # (AUTO) 1.1 X10^3/uL (1.3-2.9); LYMPHOCYTES % (AUTO) 18.6 % (21.0-51.0); MEAN CORPUSCULAR HEMOGLOBIN 24.7 pg (27.0-34.0); MEAN CORPUSCULAR HGB CONC 30.8 g/dL (33.0-35.0); MEAN CORPUSCULAR VOLUME 80.2 fL (80.0-100.0); MEAN PLATELET VOLUME 8.8 fL (7.4-11.0); MONOCYTES # (AUTO) 0.5 x10^3/uL (0.3-0.8); MONOCYTES % (AUTO) 9.2 % (0.0-13.0); NEUTROPHILS # (AUTO) 4.2 x10^3/uL (2.2-4.8); NEUTROPHILS % (AUTO) 71.4 % (42.0-75.0); PLATELET COUNT 315 X10^3/uL (150.0-450.0); RED BLOOD COUNT 4.22 X10^6/uL (3.5-5.4); RED CELL DISTRIBUTION WIDTH 16.8 % (11.6-16.5)
[2018-03-11] MEDS: NS 1000 ML 1,000 ML IV SCH (05:13)
[2018-03-11 05:22] LABS: ALANINE AMINOTRANSFERASE 20 Units/L (12-78); ALKALINE PHOSPHATASE 109 Units/L (46-116); ASPARTATE AMINO TRANSFERASE 14 Units/L (15-37); BLOOD UREA NITROGEN 15 mg/dL (7-18); CALCIUM 7.9 mg/dL (8.5-10.1); CHLORIDE 96 mmol/L (98-107); COR CA(FOR HYPOALB) 8.7 mg/dL (8.5-10.1); COR NA(FOR HYPERGLY) 138 mmol/L (136-145); CREATININE 0.48 mg/dL (0.55-1.02); SODIUM 137 mmol/L (136-145); TOTAL PROTEIN 6.2 g/dL (6.4-8.2); eGFR NON BLACK RACES > 60 (>60)
[2018-03-11 05:54] LABS: CARBON DIOXIDE 42.6 mmol/L (21-32)
[2018-03-11 06:07] LABS: WHITE BLOOD COUNT 6.8 X10^3/uL (3.6-10.0)
[2018-03-11 06:08] LABS: PLATELET MORPHOLOGY COMMENT NORMAL (NORMAL)
[2018-03-11 06:09] LABS: ANISOCYTOSIS SLIGHT; HYPOCHROMASIA SLIGHT; POIKILOCYTOSIS SLIGHT; STOMATOCYTES PRESENT; TARGET CELLS PRESENT
[2018-03-11] MEDS: ROTIGOTINE TP SCH (08:55)
[2018-03-11] MEDS: LEVAQUIN PREMIX IV 500 MG 500 MG/100 ML BAG IV SCH (08:55)
[2018-03-11] MEDS: PULMICORT NEB TX 0.5 MG NEB SCH (09:35)
[2018-03-11 14:45] LABS: ABG BASE EXCESS 14.6 mmol/L (-2.0-2.0); ABG HCO3 44.8 mmol/L (22-26); FRACTIONATED INSPIRED OXYGEN 32
[2018-03-11 15:53] VITALS: BP 106/65
== END 2018-03-11 18:55 | disposition home or self-care (01) | DRG 192 ==
LOC: MED/SURG 14:43 → ER 14:43 → MED/SURG 19:10
PROVIDERS: ADMIT Internal Medicine; ATTEND Internal Medicine
DX: R93.89 Abnormal findings on diagnostic imaging of other specified body structures; R94.31 Abnormal electrocardiogram [ECG] [EKG]; F41.8 Other specified anxiety disorders; J44.1 Chronic obstructive pulmonary disease with (acute) exacerbation; J20.8 Acute bronchitis due to other specified organisms; R06.89 Other abnormalities of breathing; R06.02 Shortness of breath; I25.10 Atherosclerotic heart disease of native coronary artery without angina pectoris; R26.89 Other abnormalities of gait and mobility; I10 Essential (primary) hypertension
CPT/HCPCS: 36415; 36600; 71010; 71045; 71260; 80053; 80061; 81001; 82550; 82553; 82803; 83735; 84484; 85025; 87086; 93005; 93010; 94640; 94760; 96365; 96374; 96375; 97162; 97166; 97535; 99221; 99282; 99284; A4216; A4222; G0378; J0696; J1200; J1885; J1956; J2920; J2930; J7030; J7050; J7620; J7626